=== PATIENT | female | born 1955 | race Caucasian/White ===

== ENCOUNTER → 2024-02-07 13:14 | Outpatient (REF) | payer MEDICARE, BC, SELFPAY | LOC: RAD 13:14 | PROVIDERS: ATTENDING PHYSICIAN Surgery Vascular Surgery; FAMILY PHYSICIAN Family Medicine | DX: I65.23 Occlusion and stenosis of bilateral carotid arteries (principal); I73.9 Peripheral vascular disease, unspecified | CPT/HCPCS: 93880; 93922; 93925 ==

== ENCOUNTER 2024-07-27 12:47 | Inpatient (IN) | payer MEDICARE, BC, SELFPAY ==
[2024-07-10 13:51] VITALS: BMI 29.5
[2024-07-10 14:16] LABS: Hematocrit 37.9 % (37.0-47.0); Hemoglobin 13.2 g/dL (12.0-16.0); Mean Corp Hgb Conc. 34.8 g/dL (33.0-37.0); Mean Platelet Volume 10.1 fL (7.4-10.4); Platelet Count 386 10^3/uL (130-400); Red Blood Cell Count 4.26 10^6/uL (4.20-5.40); Red Cell Dist. Width 12.2 % (11.5-14.5); White Blood Cell Count 7.2 10^3/uL (4.8-10.8)
[2024-07-10 14:54] LABS: ALT (SGPT) 13 U/L (0-35); AST (SGOT) 33 U/L (14-36); Albumin 4.7 g/dl (3.5-5.0); Alkaline Phosphatase 84 U/L (38-126); Blood Urea Nitrogen 11 mg/dl (7-17); Calcium 10.1 mg/dl (8.4-10.2); Carbon Dioxide 26 mmol/L (22-30); Chloride 102 mmol/L (98-107); Estimated Creatinine Clearance 79 ml/min; Glucose 82 mg/dl (70-99); Potassium 4.8 mmol/L (3.5-5.1); Sodium 137 mmol/L (135-145); Total Bilirubin 0.8 mg/dl (0.2-1.3); eGFR > 60.00
[2024-07-10 16:33] LABS: Glycohemoglobin (HgbA1c) 5.4 % (4.0-5.6)
--- NOTE | 2024-07-20 12:06 | VNURNOTE ---
Patient is scheduled for an elective revision of left knee on 07/27/24.
Spoke to patient on phone. She reports she lives in a 2 story home with first floor set up. Full bath on first floor. Patient has a walker and states spouse will bring with him when he picks her up on 07/28 at the hospital.
Patient plans to have outpatient therapy starting on 07/31/24. appointment already made. Patient requesting nursing and PT to start on 07/29 and 07/30 and then will start outpatient therapy. Explained role of SN and PT in home.
Spouse [facility] for patient�s homecare needs. Referral completed in [facility].
PCP is Dr. Nicanor Garcia. [facility]: [facility] ([phone])
[2024-07-25 09:17] VITALS: BMI 29.5
[2024-07-27] VITALS (10 sets, daily range): BP systolic 104–156; BP diastolic 53–80; BMI 29.5
[2024-07-27] MEDS: TYLENOL 650 MG PO ×2 (13:23→19:46)
[2024-07-27] MEDS: CELEBREX 200 MG PO (13:24)
[2024-07-27] MEDS: NORMOSOL-R/PLASMALYTE-A 1000 IV ×2 (13:28→17:15)
--- NOTE | 2024-07-27 17:07 | OR.RPT ---
Operative Report
Operative Report
Orthopaedic Surgery Operative Note
DATE OF OPERATION: 07/27/2024
PREOPERATIVE DIAGNOSES: Arthrofibrosis left total knee arthroplasty
POSTOPERATIVE DIAGNOSES: Same
OPERATION PERFORMED:
Revision left total knee arthroplasty, single component, without allograft.
Debridement and irrigation left knee down to bone.
SURGEON: Henry Lopez MD
ASSISTANTS: Sohail Aguilar who assisted with patient and limb positioning and retraction
ANESTHESIA: Spinal
COMPLICATIONS: None.
ESTIMATED BLOOD LOSS: 20mL
DRAINS: None
TOURNIQUET TIME: 28 minutes.
IMPLANTS: Depuy Attune 5mm MS articular surface, size 4
INDICATIONS: The patient presented to my office with left knee pain and stiffness. The patient had undergone TKA 18 months ago complicated by flexion stiffness. She underwent RONNELL and arthroscopic lysis of adhesions which failed to improve her
symptoms. She had flexion stiffness less than 90 degrees. She was frustrated with her function and inability to sit in a car or on a chair properly. She had pain with ambulation on stairs. I reviewed her imaging and operative note and discussed
option for open lysis of adhesions with PCL resection. We reviewed the natural history of this problem, as well as the risks, benefits, and alternatives of various treatment options. The patient exhausted all nonoperative treatment options and
wished to proceed with revision knee replacement surgery. The patient understood the risks which included, but were not limited to, bleeding, infection, failure to relieve pain, more pain than preop, damage to blood vessels and nerves, need for
reoperation, mechanical failure of the implants, wound healing problems, stiffness, instability, blood clot, pulmonary embolism, myocardial infarction, pneumonia, arrhythmia, CVA, and . The patient accepted these risks and wished to proceed.
All questions were answered, and informed consent was obtained.
PROCEDURE IN DETAIL: The patient was identified in the preoperative holding area. The left knee was identified as the operative site. The patient was taken in the operating room and placed in a supine position on the operating table. Spinal
anesthesia was performed. IV antibiotics and tranexamic acid were administered. A well-padded tourniquet was placed on the proximal thigh. SCD was placed on right lower extremity. All bony prominences were well padded. The limb was prepped and
draped in the usual sterile fashion.
We performed a surgical time-out. An interarticular block was performed with local anesthetic with epinephrine. The limb was exsanguinated with an Esmarch bandage, then the tourniquet was inflated to 250 mmHg. The prior anterior midline scar was
excised. Dissection was carried down to the extensor mechanism. A medial parapatellar arthrotomy was performed. No purulence was encountered. Yellow translucent low viscosity fluid was encountered, small amount. There was adherent synovium between
the anterior femur and extensor mechanism.
A complete synovectomy was performed in suprapatellar pouch and medial and lateral gutters with care not to damage extensor mechanism or collateral ligaments. A subperiosteal peel was performed on the medial tibia. I excised scar tissue between the
patella tendon and the anterior tibia to enhance exposure. The knee was flexed. The patella was not everted - it was subluxated laterally. Further debridement was carried down, both sharp and with electrocautery, down to bone and the synovium was
excised.
The polyethylene liner was removed and inspected. The femoral and tibia components were inspected. A bone tamp was used to determine the components were well fixed. They appeared well positioned and well rotated. The metal surface of the tibia and
femur appeared intact without wear or corrosion. The patella tracked centrally. After a thorough open lysis of adhesions, the knee could bend to about 95 degrees, improved from about 80 degrees prior to incision.
The poly insert was removed, and notch was noted to have what appeared to be heterotopic bone encasing the PCL and notch structures. The heterotopic bone and PCL were excised. Care was made not to damage posterior structures. The goal of this was to
open the flexion gap. Once the PCL was excised and some heterotopic bone about the posterior femoral condyles, the flexion gap opened nicely. A trial spacer was inserted, and the flexion and extension gaps were well balanced. The knee would bend
just past 120 degrees.
The knee was copiously irrigated. Any remnant synovium and particles were excised. The final polyethylene spacer was impacted into place and engaged the locking mechanism. No soft tissues was interposed. The knee was again irrigated with copious
saline and dilute betadine soak was performed. A fresh drape was placed on the field.
The arthrotomy was closed with 0-PDS. Once closed, an interarticular block was performed with local anesthetic with epi. The deep dermal layer was closed with 2-0 PDS, and the subcuticular skin was closed with 3-0 monocryl. A Dermabond Prineo
dressing was applied to the skin in full flexion. Once this was completely dry, a sterile waterproof dressing was applied.
The anesthesia team performed an adductor canal block in the OR. The patient awoke from anesthesia without any difficulties. The sponge and instrument counts were correct x2 at the end of the case. I was present and participated in the entire case.
Marquise Lopez MD
[2024-07-27] MEDS: ROXICODONE 5 MG PO (17:46)
[2024-07-27] MEDS: COLACE 100 MG PO (19:46)
[2024-07-27] MEDS: SENOKOT 17.2 MG PO (19:46)
[2024-07-27] MEDS: DECADRON 4 MG PO (19:46)
[2024-07-27] MEDS: BACTROBAN 2% OINTMENT 1 APPLIC NASAL (19:46)
[2024-07-27] MEDS: ASPIRIN 325 MG PO (19:46)
[2024-07-27] MEDS: TORADOL 10 MG IV (19:47)
[2024-07-27] MEDS: LIPITOR PO (20:29)
[2024-07-27] MEDS: ANCEF 5 IV (21:17)
[2024-07-27] MEDS: NEURONTIN 300 MG PO (21:17)
[2024-07-28] MEDS: TYLENOL 650 MG PO ×3 (00:29→07:35)
[2024-07-28 03:00] VITALS: BP 114/68
[2024-07-28] MEDS: ANCEF 5 IV (05:04)
[2024-07-28 07:15] VITALS: BP 119/72
[2024-07-28] MEDS: CELEBREX 200 MG PO (07:33)
[2024-07-28] MEDS: LIPITOR 80 MG PO (07:33)
[2024-07-28] MEDS: DECADRON 4 MG PO (07:36)
[2024-07-28] MEDS: COLACE 100 MG PO (07:36)
[2024-07-28] MEDS: SENOKOT 17.2 MG PO (07:36)
[2024-07-28] MEDS: VALTREX 500 MG PO (07:36)
[2024-07-28] MEDS: ASPIRIN 325 MG PO (07:36)
[2024-07-28] MEDS: TORADOL 10 MG IV (07:37)
[2024-07-28] MEDS: BACTROBAN 2% OINTMENT 1 APPLIC NASAL (07:37)
--- NOTE | 2024-07-28 07:39 | W.PN.ORTHO ---
Today's Communication / Plan
-
Plan for discharge today
Assessment
.
Distal Motor Intact: Yes
Dressing:
Clean, dry and intact.
Plan
.
Surgery / Date: 27 July 2024 left revision TKR
DVT Prophylaxis: Aspirin
Activity:
Out of bed.
PT/OT
Subjective
.
.:
Patient resting comfortably.
Vital Signs and Labs
.
Vital Signs and Labs:
Lab Results
07/10/24 12:34
07/10/24 12:34
Temp Pulse Resp BP Pulse Ox
97.7 F 74 16 114/68 96
07/28/24 03:00 07/28/24 03:00 07/28/24 03:00 07/28/24 03:00 07/28/24 03:00
Non-invasive Hgb result: 13.7
[2024-07-28 07:50] VITALS: BP 119/72
--- NOTE | 2024-07-28 08:22 | W.DCSUMMARY ---
Discharge Summary
Discharge Data
Date of Admission: 07/27/24
Date of Discharge: 07/28/24
-
Pending Results: No
Hospital Course
The patient underwent left revision total knee arthroplasty with Dr. Lopez without complications. The patient recovered in the PACU and was transferred to the floor. The postoperative course remained uncomplicated. At the time of discharge, the
patient was noted to be tolerating a regular diet, ambulating with adherence to weightbearing and activity restrictions, able to accomplish activities of daily living at baseline level, and had pain controlled on oral medications. Prior to
discharge, the patient was provided with appropriate discharge/follow-up/return instructions, and discharge medications
Discharge Plan
-
Patient Disposition: Home (Routine Discharge)
Discharge Diagnosis/Procedures: Left hip revision total knee arthroplasty with Dr. Lopez
Condition: Good
Diet: No restrictions
Activity: No restrictions and With Walker
Driving Restrictions: Not until seen by your Dr
Bathing Restrictions: OK to Shower
Wound Care: Maintain Mepilex dressing until first postoperative follow-up
Referrals:
Nicanor Garcia MD [Family Provider] -
Sohail Vargas PA-C [Specified Professional Personl] - (Currently scheduled first postoperative visit 08/09/2024 at 10:00. Please contact the office if there are any issues with this appointment)
Additional Discharge Medication Instructions: Medications were prescribed at preoperative visit prior to surgery. Please continue with the instructions for postoperative medications provided at the preoperative visit.
Prescriptions:
Continued
calcium carbonate-vitamin D3 [Oyster Shell Calcium-Vit D3] 500 MG tablet
1 tab PO DAILY
amlodipine 5 MG tablet
5 mg PO DAILY Qty: 30 0RF
valacyclovir 500 mg Tablet
500 mg PO DAILY
atorvastatin 80 MG tablet
80 mg PO DAILY
Held
aspirin 81 MG tablet,delayed release (DR/EC)
81 mg PO DAILY
Hold Instructions: Resume on 08/25/24.
Discontinued
mupirocin 2 % Ointment Kit
1 applic TOPICAL BID
Patient Comments:
started treatment wednesday07/24/24 and completed BID
Discharge Orders:
Discharge Patient (As Directed); Ordered 07/28/24
Ordered By: Paramjit Byrd
Discharge Date and Time
Print Language: MACEDONIAN
[2024-07-28 09:21] VITALS: BP 141/61; PULSE 83
--- NOTE | 2024-07-28 09:27 | CM ---
POD #1 Revision of L knee arthroplasty
Met with pt at bedside
Lives at listed address, in a 2 story home; FF set-up, 1 step to enter
Independent at baseline, driving, retired
DME - rolling walker, cane, raised toilet seat
SNF - no past hx
HH - in past, unsure of agency
Has ride at discharge
PCP - Dr Nicanor Garcia
[facility] - [facility]
PT/OT recs pending
Discussed discharge - has ride home with
Requesting home care - no preference to agency - TT sent to [facility]
Plan - anticipate home with [facility] when medically stable
== END 2024-07-28 11:24 | disposition home health service (06) | DRG 489 ==
LOC: 2 SOUTH 12:47
PROVIDERS: ADMITTING PHYSICIAN Orthopaedic Surgery; FAMILY PHYSICIAN Family Medicine
PROC: 0SUW09Z Supplement Left Knee Joint, Tibial Surface with Liner, Open Approach (ICD-10-PCS; 2024-07-27)
PROC: 0SBD0ZZ Excision of Left Knee Joint, Open Approach (ICD-10-PCS; 2024-07-27)
PROC: 0SPD09Z Removal of Liner from Left Knee Joint, Open Approach (ICD-10-PCS; 2024-07-27)
DX: M24.662 Ankylosis, left knee (principal)
CPT/HCPCS: 36415; 73560; 80053; 83036; 85027; 86850; 86900; 86901; 87070; 97116; 97162; 97166; 97535

== ENCOUNTER → 2024-09-19 13:15 | Outpatient (REF) | payer MEDICARE, BC, SELFPAY | LOC: RAD 13:15 | PROVIDERS: ATTENDING PHYSICIAN Registered Nurse; FAMILY PHYSICIAN Family Medicine; OTHER PHYSICIAN Surgery Vascular Surgery | DX: I73.9 Peripheral vascular disease, unspecified (principal) | CPT/HCPCS: 93922; 93925 ==

== ENCOUNTER 2024-10-12 06:09 | Day surgery (SDC) | payer MEDICARE, BC, SELFPAY ==
[2024-09-13 13:42] VITALS: BMI 29.2
[2024-09-13 14:20] LABS: Hematocrit 34.9 % (37.0-47.0); Hemoglobin 12.2 g/dL (12.0-16.0); Mean Corpuscular Hgb 31.6 pg (27.0-31.0); Mean Corpuscular Volume 90.4 fL (81.0-99.0); Mean Platelet Volume 9.6 fL (7.4-10.4); Platelet Count 372 10^3/uL (130-400); Red Blood Cell Count 3.86 10^6/uL (4.20-5.40); Red Cell Dist. Width 12.5 % (11.5-14.5); White Blood Cell Count 9.5 10^3/uL (4.8-10.8)
[2024-09-13 15:37] LABS: ALT (SGPT) 14 U/L (0-35); AST (SGOT) 28 U/L (14-36); Albumin 4.6 g/dl (3.5-5.0); Alkaline Phosphatase 85 U/L (38-126); Blood Urea Nitrogen 12 mg/dl (7-17); Calcium 9.8 mg/dl (8.4-10.2); Carbon Dioxide 26 mmol/L (22-30); Chloride 99 mmol/L (98-107); Estimated Creatinine Clearance 95 ml/min; Glucose 89 mg/dl (70-99); Potassium 4.3 mmol/L (3.5-5.1); Sodium 138 mmol/L (135-145); Total Bilirubin 0.7 mg/dl (0.2-1.3); Total Protein 6.9 g/dl (6.3-8.2); eGFR > 60.00
[2024-09-14 08:52] LABS: Glycohemoglobin (HgbA1c) 5.3 % (4.0-5.6)
--- NOTE | 2024-09-28 14:10 | VNURNOTE ---
Patient is scheduled for an elective R TKA on 10/12/24- she is a same day patient with Dr Lopez. Spoke with patient prior to surgery. Introduced role of [facility] Lia[facility]. Patient reports that she lives with spouse in [facility].
There are 3 steps to enter.
There is a powder room on the entry level sales consultant. She currently functions independently. She has a raised toilet seat, cane and rolling walker.
She had [facility] services after prior THR but was not same day surgery.
PCP is Dr Nicanor Garcia.
Discussed [facility] joint protocol and post surgical plans.
Reviewed that she will have [facility] services initially and will then start outpatient PT.
Patient selects [facility] for home care needs and will go to [facility] in [place] for outpatient PT. Scheduled for 10/16
Patient is in agreement with plan and states that her spouse will be home with her. Advised to bring RW with her day of surgery. Referral placed in [facility].
Plan: [facility] per [facility] joint protocol then outpt PT on 10/16
[2024-10-06 09:22] VITALS: BMI 29.2
[2024-10-12] VITALS (16 sets, daily range): BP systolic 97–153; BP diastolic 49–72; PULSE 73; O2SAT 96; BMI 29.2
[2024-10-12] MEDS: CELEBREX 200 MG PO (06:21)
[2024-10-12] MEDS: TYLENOL 650 MG PO (06:21)
--- NOTE | 2024-10-12 09:17 | OR.RPT ---
Operative Report
Operative Report
Orthopaedic Surgery Operative Note
DATE OF OPERATION: 10/12/2024
PREOPERATIVE DIAGNOSES: Osteoarthritis, right knee.
POSTOPERATIVE DIAGNOSES: Osteoarthritis, right knee.
OPERATION PERFORMED:
1) Right total knee arthroplasty (CPT 98865)
2) Intraosseous administration of analgesic (CPT 54790)
SURGEON: Henry Lopez MD
ASSISTANTS: Sohail Aguilar PA-C who helped with patient and limb positioning and retraction
ANESTHESIA: Spinal by anesthesia plus intraoperative infusion of morphine into the tibial metaphysis by Dr. Lopez
COMPLICATIONS: None.
ESTIMATED BLOOD LOSS: 20mL
DRAINS: None
TOURNIQUET TIME: 55 minutes.
IMPLANTS:
- Consuelo Persona PS Femur, size 7
- Consuelo Persona tibia base plate, size D
- Consuelo Persona CPS articular surface, 14 mm
- All-polyethylene patellar component, size 29
- DJO [place] bone cement
INDICATIONS: The patient presented to my office with debilitating right knee pain due to osteoarthritis. We reviewed the natural history of this problem, as well as the risks, benefits, and alternatives of various treatment options. The patient
exhausted all nonoperative treatment options and wished to proceed with knee replacement surgery. The patient understood the risks which included, but were not limited to, bleeding, infection, failure to relieve pain, more pain than preop, damage to
blood vessels and nerves, need for reoperation, mechanical failure of the implants, wound healing problems, stiffness, instability, blood clot, pulmonary embolism, myocardial infarction, pneumonia, arrhythmia, CVA, and . The patient accepted
these risks and wished to proceed. All questions were answered, and informed consent was obtained.
PROCEDURE IN DETAIL: The patient was identified in the preoperative holding area. The right knee was identified as the operative site. The patient was taken in the operating room and placed in a supine position on the operating table. Spinal
anesthesia was performed. IV antibiotics and tranexamic acid were administered. An SCD was placed on the left lower extremity. A well-padded tourniquet was placed on the proximal thigh. All bony prominences were well padded. The right lower
extremity was prepped and draped in the usual sterile fashion.
We performed a surgical time-out. An interarticular block was performed with local anesthetic with epinephrine. The limb was exsanguinated with an Esmarch bandage, then the tourniquet was inflated to 250 mmHg. I performed interosseous administration
of morphine-saline solution via a Jamshidi style intraosseous needle into the proximal medial tibial metaphysis as described by Eliazar Gonzalez MD. This was performed to aid in pain control. A midline skin incision was made followed by a medial
parapatellar arthrotomy. A subperiosteal peel was performed on the medial tibia. I excised part of the infrapatellar fat pad to improve our visualization as well as tissue over anterior femur. The patella was everted and the knee was flexed. I
excised the remnants of the anterior and posterior cruciate ligaments as well as tibial and femoral osteophytes with rongeurs.
The knee was flexed, and the extramedullary tibial cutting guide was aligned. [place] was aligned at neutral, rotation was centered on the tibial tubercle, and coronal alignment was aligned with the mechanical axis of the tibia and center of the ankle
joint. The cut height was 10mm off the lateral tibia joint surface. The guide was secured into place. The MCL and LCL were protected. The tibia surface was cut. The cut surface was inspected after removal to ensure appropriate height and slope based
on the preoperative plan. The cut was checked with a drop sheila. It was centered nicely at the ankle.
A drill was used to open the femoral canal. The intramedullary distal femoral cutting guide was inserted into the femur. This was set at 5 degrees +0. This was secured into place with three pins. The cut level was checked with an den wing. The
distal femur was cut through the cutting guide. The IM guide was reinserted to double check that the level of resection was flush and in appropriate alignment.
Burnett�s line and the transepicondylar axis were marked on the femur. The femoral sizing guide was applied to the anterior femur. Pins were inserted, and the 4-in-1 cutting guide was applied and secured into place. The rotation was compared to
Burnett�s line, the transepicondylar axis, and the neutral tibia cut and was found to be appropriate. The width was checked and found to be appropriate and lateralized on the femur. The anterior, posterior, and chamfur cuts were made. A lamina
latent fingerprint examiner was used to open the flexion gap, and posterior osteophytes were removed with a curved osteotome. The remnant medial and lateral meniscus were also removed. I prophylactically cauterized the lateral geniculate arteries. A 10mm spacer block
was applied to the flexion gap and was noted to be balanced medially and laterally. The knee was extended, and the block showed symmetric to extension and flexion gaps.
The tibia was exposed and sized. Rotation was set in line with the tibial tubercle and congruent with the femur. The trial was secured into place with two pins. The trial femur was impacted into place, and the notch was prepared. A trial articular
surface was placed. The knee was taken through range of motion and noted to be stable throughout the arc of motion without gaping or excess tension. In extension, a measured resection of the patella was performed. The patella was sized, and lug
holes were drilled. A trial patella component was applied, and it was noted to track centrally throughout the arc of motion without need for further releases. Due to the patient's history of arthrofibrosis on the left with stiffness, CPS insert was
utilized to reduce micromotion pain and secondary inflammation in the perioperative period.
The trials were removed. The tibia keel was prepared with the punch and the drill. The bone surfaces were irrigated with sterile saline and dried. The cement was mixed in a vacuum mixer. Cement gun was used to apply cement to the tibial surface and
the undersurface of the tibial implant. Cement was pressurized into the tibial canal and tibia surface. The tibial component was impacted into place. Excess cement was removed. Cement was applied to the femoral surface and the femoral component. The
femoral component was impacted into place, and excess cement removed. A trial articular surface was inserted, and the knee was extended while the cement polymerized. The tourniquet was let down, and meticulous hemostasis was achieved. Dilute
betadine was poured into the wound and allowed to soak for 3 minutes. The knee was irrigated with copious normal saline.
Once the cement was polymerized, the trial articular surface was removed. Any excess cement was removed. The knee was trialed, and the final articular surface was selected and inserted into the tibial locking mechanism. The knee was reduced. A fresh
drape was applied to the surgical field. ROM was 0-120 with gravity.
The arthrotomy was closed with 0-PDS. Once closed, an interarticular block was performed with local anesthetic with epi. The deep dermal layer was closed with 2-0 PDS, and the subcuticular skin was closed with 3-0 monocryl. A Dermabond Prineo
dressing was applied to the skin in full flexion. Once this was completely dry, a sterile waterproof dressing was applied.
The anesthesia team performed an adductor canal block in the OR. The patient awoke from anesthesia without any difficulties. The sponge and instrument counts were correct x2 at the end of the case.
Marquise Lopez MD
[2024-10-12] MEDS: ROXICODONE 5 MG PO ×2 (11:17→12:39)
[2024-10-12] MEDS: ANCEF 5 IV (11:25)
== END 2024-10-12 13:00 | disposition home health service (06) ==
LOC: SDS 06:09
PROVIDERS: ATTENDING PHYSICIAN Orthopaedic Surgery; FAMILY PHYSICIAN Family Medicine
DX: M17.11 Unilateral primary osteoarthritis, right knee (principal)
CPT/HCPCS: 27447; C1713; C1776; 36415; 73560; 80053; 83036; 85027; 87070; 97116; 97162

== ENCOUNTER → 2024-12-14 14:39 | Outpatient (REF) | payer MEDICARE, BC, SELFPAY | LOC: WDC 14:39 | PROVIDERS: ATTENDING PHYSICIAN Family Medicine | DX: Z12.31 Encounter for screening mammogram for malignant neoplasm of breast (principal); Z12.39 Encounter for other screening for malignant neoplasm of breast | CPT/HCPCS: 77063; 77067 ==

== ENCOUNTER → 2025-02-21 14:50 | Outpatient (REF) | payer MEDICARE, BC, SELFPAY | LOC: RCS 14:50 | PROVIDERS: ATTENDING PHYSICIAN Family Medicine | DX: R53.83 Other fatigue (principal) | CPT/HCPCS: 93306 ==

== ENCOUNTER → 2025-04-10 07:04 | Outpatient (REF) | payer MEDICARE, BC, SELFPAY | LOC: RAD 07:04 | PROVIDERS: ATTENDING PHYSICIAN Surgery Vascular Surgery; FAMILY PHYSICIAN Family Medicine | DX: I73.9 Peripheral vascular disease, unspecified (principal) | CPT/HCPCS: 93922; 93925 ==

== ENCOUNTER → 2025-04-27 11:45 | Outpatient (REF) | payer MEDICARE, BC, SELFPAY | LOC: RCS 11:45 | PROVIDERS: ATTENDING PHYSICIAN Internal Medicine Interventional Cardiology; FAMILY PHYSICIAN Family Medicine | DX: R06.09 Other forms of dyspnea (principal); R53.82 Chronic fatigue, unspecified | CPT/HCPCS: 78452; 93017; A9500; J2785 ==

== ENCOUNTER → 2025-05-24 14:38 | Outpatient (REF) | payer MEDICARE, BC, SELFPAY | LOC: WDC 14:38 | PROVIDERS: ATTENDING PHYSICIAN Obstetrics & Gynecology; FAMILY PHYSICIAN Family Medicine | DX: R92.2 Inconclusive mammogram (principal) | CPT/HCPCS: 76641 ==

== ENCOUNTER 2025-08-22 06:11 | Day surgery (SDC) | payer MEDICARE, BC, SELFPAY | END 2025-08-22 14:02 | disposition home or self-care (01) | LOC: GI 06:11 | PROVIDERS: ATTENDING PHYSICIAN Surgery; FAMILY PHYSICIAN Family Medicine | DX: Z12.11 Encounter for screening for malignant neoplasm of colon (principal); K64.8 Other hemorrhoids; K62.89 Other specified diseases of anus and rectum; Z86.0100 Personal history of colon polyps, unspecified; Z80.0 Family history of malignant neoplasm of digestive organs | CPT/HCPCS: G0105 ==